=== PATIENT | male | born 1940 | race Caucasian/White ===

== ENCOUNTER 2016-06-11 08:59 | Emergency (ER) | payer MEDICARE, BC ==
[2016-06-11] MEDS ORDERED: Sodium Chloride 0.9% 1,000 ML IV SCH (10:00)
--- NOTE | 2016-06-11 10:14 | EDM.PDOC ---
[id number] [facility] [place] Time Seen by Provider: 06/11/16 10:09 Source: Reports: Patient, Family History Limitations: Reports: No limitations - History of Present Illness INITIAL COMMENTS - FREE TEXT/NARRATIVE: pt was at [facility] this am and he had not been getting up and down, he was sitting there and he suddenly looked like he was not aware and e was loosing his false teeth., Timing/Duration: Reports: sudden onset, resolved prior to arrival Event Occurred (Where): other ([facility]) Event (Witnessed/Unwitnessed): witnessed Quality: Reports: other (pt had a brief perod that he was not responding normally. ) Pre Event Symptom(s): Reports: confusion, syncope, other (Pt does have a history of demention) - Related Data Allergies/ADRs: Allergies Allergy/AdvReac Type Severity Reaction Status Date / Time No Known Allergies Allergy Verified 06/11/16 09:06 Home Meds: Home Meds Aspirin 325 mg PO DAILY 06/02/13 [History] Levothyroxine 75 mcg PO DAILY 06/02/13 [History] Lisinopril [Prinivil] 10 mg PO DAILY 06/02/13 [History] Metoprolol Succinate [Toprol XL] 25 mg PO DAILY 06/02/13 [History] Pantoprazole [Protonix] 40 mg PO DAILY 06/02/13 [History] Simvastatin [Simvastatin] 1 tab PO BEDTIME 06/02/13 [History] Donepezil HCl [Aricept] 10 mg PO DAILY 03/26/16 [History] Past Medical History HEENT History: Reports: Hard of hearing, Impaired vision Cardiovascular History: Reports: Angina, Bypass, High cholesterol, Hypertension , [place], Syncope Gastrointestinal History: Reports: Chronic constipation Musculoskeletal History: Reports: Arthritis Neurological History: Reports: Alzheimers disease Psychiatric History: Reports: Dementia, Depression Endocrine/Metabolic History: Reports: Hypothyroidism Other Endocrine/Metabolic History: thyroid disease Hematologic History: Reports: Blood transfusion(s) - Infectious Disease History Infectious Disease History: Reports: Chicken pox - Past Surgical History HEENT Surgical History: Reports: Oral surgery Cardiovascular Surgical History: Reports: Coronary artery bypass Other Cardiovascular Surgeries/Procedures: 2008 CABG GI Surgical History: Reports: Appendectomy, Colonoscopy Social & Family History - Tobacco Use Smoking Status *Q: Never Smoker Years of Tobacco use: 20 Used Tobacco, but Quit: Yes Month Tobacco Last Used: mar Second Hand Smoke Exposure: No - Caffeine Use Caffeine Use: Reports: Coffee - Alcohol Use Days Per Week of Alcohol Use: 0 - Recreational Drug Use Recreational Drug Use: No ED ROS GENERAL - Review of Systems Review Of Systems: See Below Constitutional: Reports: no symptoms HEENT: Reports: No symptoms Respiratory: Reports: No Symptoms Cardiovascular: Reports: No symptoms Endocrine: Reports: no symptoms GI/Abdominal: Reports: No symptoms : Reports: no symptoms Skin: Reports: no symptoms Neurological: Reports: Confusion, Syncope Psychiatric: Reports: No symptoms - Physical Exam Exam: See Below Text/Narrative:: Pt arrived after having a syncopal or near syncopal episode in [facility]. Exam Limited By: No limitations General Appearance: alert, no apparent distress, anxious, other ( pupils are equal and reactive. ) Ears: normal TMs Nose: normal inspection Throat/Mouth: Normal inspection Head Exam: atraumatic Neck: normal inspection Respiratory/Chest: no respiratory distress Cardiovascular: regular rate, rhythm, other ( bp is on the low side. ) GI/Abdominal: soft, non tender (Male) Exam: Normal inspection Rectal (Males) Exam: Deferred Neuro Exam (Abbreviated): alert, oriented, normal cognition Back Exam: normal inspection Extremities: normal inspection Psychiatric: anxious Course - Vital Signs Last Recorded V/S: Last Vital Signs Temp 36.4 C 06/11/16 09:02 Pulse 64 06/11/16 10:05 Resp 10 L 06/11/16 10:05 BP 127/55 L 06/11/16 10:05 Pulse Ox 98 06/11/16 10:05 Orthostatic Blood Pressure [ 117/73 Standing] Orthostatic Blood Pressure [ 112/72 Sitting] Orthostatic Blood Pressure [ 99/70 Supine] - Orders/Labs/Meds Labs: Laboratory Tests 06/11/16 06/11/16 Range/Units 09:15 09:15 Sodium 144 (140-148) mmol/L Potassium 4.3 (3.6-5.2) mmol/L Chloride 106 (100-108) mmol/L Carbon Dioxide 29 (21-32) mmol/L Anion Gap 9.3 (5.0-14.0) mmol/L BUN 13 (7-18) mg/dL Creatinine 1.0 (0.8-1.3) mg/dL Est Cr Clr Drug Dosing 62.70 mL/min Estimated GFR (MDRD) > 60 (>60) Glucose 116 H (74-106) mg/dL Calcium 8.5 (8.5-10.1) mg/dL Total Bilirubin 0.5 D (0.2-1.0) mg/dL AST 25 (15-37) U/L ALT 31 (12-78) U/L Alkaline Phosphatase 67 (46-116) U/L Troponin I < 0.017 (0.000-0.056) ng/mL Total Protein 7.1 (6.4-8.2) g/dL Albumin 3.6 (3.4-5.0) g/dL Globulin 3.5 (2.3-3.5) g/dL Albumin/Globulin Ratio 1.0 L (1.2-2.2) Meds: Medications Discontinued Medications Generic Name Dose Route Start Last Admin Trade Name Freq PRN Reason Stop Dose Admin Sodium Chloride 1,000 mls @ 999 mls/hr 06/11/16 10:00 06/11/16 10:23 Normal Saline IV 999 mls/hr ASDIRECTED MYLES Administration Departure - Departure Time of Disposition: 11:35 Disposition: Home, Self-Care 01 Condition: fair Clinical Impression: Postural hypotension, Dehydration Instructions: Hypotension, [id number], Near-Syncope, [id number], Dehydration, Adult Referrals: Leopoldo Rodriguez MD [Primary Care Provider] - Forms: ED Department Discharge Care Plan Goals: encourage fluids, decrease lisinopril to 1/2 tab daily--5mg instead of 10mg. See regular Dr in 10 days and recheck bp.
[2016-06-11 10:19] VITALS: BP 127/55
== END 2016-06-11 11:37 | disposition home or self-care (01) ==
LOC: JP.ED 08:59
DX: I95.1 Orthostatic hypotension (principal); E86.0 Dehydration; E78.00 Pure hypercholesterolemia, unspecified; I10 Essential (primary) hypertension; I25.2 Old myocardial infarction; E03.9 Hypothyroidism, unspecified; Z95.1 Presence of aortocoronary bypass graft; Z90.49 Acquired absence of other specified parts of digestive tract; Z98.890 Other specified postprocedural states; Z87.891 Personal history of nicotine dependence; Z79.899 Other long term (current) drug therapy; Z79.82 Long term (current) use of aspirin
CPT/HCPCS: 36415; 80053; 84484; 85025; 93005; 93010; 96360; 99284; J7040

== ENCOUNTER 2017-04-15 02:08 | Emergency (ER) | payer MEDICARE, BC ==
[2017-04-15 02:22] VITALS: BP 107/79
--- NOTE | 2017-04-15 02:48 | EDM.PDOC ---
ED HPI GENERAL MEDICAL PROBLEM - General Chief Complaint: Exposure to Heat or Cold Stated Complaint: FROSTBITE Time Seen by Provider: 04/15/17 02:30 Source of Information: Reports: Patient, Family, RN History Limitations: Reports: No Limitations - History of Present Illness INITIAL COMMENTS - FREE TEXT/NARRATIVE: 76 yo male here via police after he was found wandering the streets in his pajaprs with a pair of socks on his feet. Police called the and she met him here. Richard has known dementia and wandered off once in the past, but that time did not get as far from home. Onset: Today Onset Date: 04/15/17 Duration: Minutes: Location: Reports: Generalized Severity: Mild Improves with: Reports: Heat Therapy Worsens with: Reports: Other (time exposed to the elements) Context: Reports: Other (dementia) Associated Symptoms: Reports: Cough (chronic, not worse than usual per his . ) Treatments UNIX CONSULTANT: Reports: Other (see below) (none) Bilateral Feet Pain Score (Numeric/FACES): 8 - Related Data Allergies Allergy/AdvReac Type Severity Reaction Status Date / Time No Known Allergies Allergy Verified 06/11/16 09:06 Home Meds: Home Meds Aspirin 325 mg PO DAILY 06/02/13 [History] Levothyroxine 75 mcg PO DAILY 06/02/13 [History] Lisinopril [Prinivil] 10 mg PO DAILY 06/02/13 [History] Metoprolol Succinate [Toprol XL] 25 mg PO DAILY 06/02/13 [History] Pantoprazole [Protonix] 40 mg PO DAILY 06/02/13 [History] Simvastatin [Simvastatin] 1 tab PO BEDTIME 06/02/13 [History] Donepezil HCl [Aricept] 10 mg PO BEDTIME 03/26/16 [History] Past Medical History HEENT History: Reports: Hard of Hearing, Impaired Vision Cardiovascular History: Reports: Angina, Bypass, High Cholesterol, Hypertension , [place], Syncope Gastrointestinal History: Reports: Chronic Constipation Musculoskeletal History: Reports: Arthritis Neurological History: Reports: Alzheimers Disease Psychiatric History: Reports: Dementia, Depression Endocrine/Metabolic History: Reports: Hypothyroidism Other Endocrine/Metabolic History: thyroid disease Hematologic History: Reports: Blood Transfusion(s) - Infectious Disease History Infectious Disease History: Reports: Chicken Pox - Past Surgical History HEENT Surgical History: Reports: Oral Surgery Cardiovascular Surgical History: Reports: Coronary Artery Bypass Social & Family History - Tobacco Use Smoking Status *Q: Former Smoker Years of Tobacco use: 20 Used Tobacco, but Quit: Yes Month Tobacco Last Used: 1998 Second Hand Smoke Exposure: No - Caffeine Use Caffeine Use: Reports: Coffee - Alcohol Use Days Per Week of Alcohol Use: 0 - Recreational Drug Use Recreational Drug Use: No ED ROS GENERAL - Review of Systems Review Of Systems: See Below Constitutional: Reports: Chills HEENT: Reports: No Symptoms Respiratory: Reports: Cough (chronic) Cardiovascular: Reports: No Symptoms Endocrine: Reports: No Symptoms GI/Abdominal: Reports: No Symptoms : Reports: No Symptoms Musculoskeletal: Reports: No Symptoms Skin: Reports: Other (cold skin) Neurological: Reports: Other (dementia) Psychiatric: Reports: No Symptoms ED EXAM, GENERAL - Physical Exam Exam: See Below Exam Limited By: No Limitations General Appearance: Alert, WD/WN, No Apparent Distress Eye Exam: Bilateral Eye: Normal Inspection Ears: Normal External Exam, Normal Canal, Hearing Grossly Normal Ear Exam: Bilateral Ear: Auricle Normal, Canal Normal Nose: Normal Inspection, Normal Mucosa, No Blood Throat/Mouth: Normal Inspection, Normal Lips, Normal Teeth, Normal Oropharynx, Normal Voice, No Airway Compromise Head: Atraumatic, Normocephalic Neck: Normal Inspection, Supple, Non-Tender Respiratory/Chest: No Respiratory Distress, Lungs Clear, Normal Breath Sounds, No Accessory Muscle Use Cardiovascular: Regular Rate, Rhythm, No Edema GI/Abdominal: Normal Bowel Sounds, Soft, Non-Tender, No Distention Back Exam: Normal Inspection Extremities: Normal Inspection, Normal Range of Motion, Non-Tender, No Pedal Edema Neurological: Alert, CN II-XII Intact, No Motor/Sensory Deficits, Other (not fully oriented due to dementia ) Psychiatric: Normal Affect, Normal Mood Skin Exam: Warm, Dry, Intact, Normal Color, No Rash, Other (No signs of frostbite) Lymphatic: No Adenopathy Course - Vital Signs Text/Narrative:: warmed with blankets in the ER. Last Recorded V/S: Last Vital Signs Temp 36.2 C 04/15/17 02:48 Pulse 65 04/15/17 02:10 Resp 18 04/15/17 02:10 BP 107/79 04/15/17 02:10 Pulse Ox 98 04/15/17 02:10 Departure - Departure Time of Disposition: 03:15 Disposition: Home, Self-Care 01 Condition: Good Clinical Impression: Hypothermia, initial encounter - Discharge Information Referrals: PCP,None [Primary Care Provider] - Forms: ED Department Discharge Additional Instructions: Recheck as needed.
== END 2017-04-15 03:25 | disposition home or self-care (01) ==
LOC: JP.ED 02:08
DX: T68.XXXA Hypothermia, initial encounter (principal); F03.90 Unspecified dementia, unspecified severity, without behavioral disturbance, psychotic disturbance, mood disturbance, and anxiety; E03.9 Hypothyroidism, unspecified; E78.00 Pure hypercholesterolemia, unspecified; Z91.83 Wandering in diseases classified elsewhere; Z79.899 Other long term (current) drug therapy; Z79.82 Long term (current) use of aspirin; Z87.891 Personal history of nicotine dependence; X31.XXXA Exposure to excessive natural cold, initial encounter
CPT/HCPCS: 99283

== ENCOUNTER 2017-04-15 16:02 | Emergency (ER) | payer MEDICARE, BC ==
[2017-04-15 16:38] VITALS: BP 140/78
[2017-04-15] MEDS ORDERED: Ketorolac 30 MG/ML SDV IM ONE (17:08)
--- NOTE | 2017-04-15 17:26 | EDM.PDOC ---
ED HPI GENERAL MEDICAL PROBLEM - General Chief Complaint: Skin Complaint Stated Complaint: SALAZAR BITE BOTH FEET Time Seen by Provider: 04/15/17 17:04 Source of Information: Reports: Patient, Family, Old Records, RN Notes Reviewed History Limitations: Reports: Physical Impairment - History of Present Illness INITIAL COMMENTS - FREE TEXT/NARRATIVE: 76-year-old gentleman presents emergency department today for evaluation of his feet. He has a known history of dementia was evaluated emergency department early this morning for potential hypothermia was found walking outside in the snow in his stocking feet at the time per review of chart no sign of frostbite. He does return now he's developed blisters on the bottom of his feet he did remove them himself he has lost the top layer of skin by self removal still has some blisters present on the soles of his feet bilaterally, he is also complaining of pain bilateral feet Pain Score (Numeric/FACES): 1 - Related Data Allergies Allergy/AdvReac Type Severity Reaction Status Date / Time No Known Allergies Allergy Verified 04/15/17 16:41 Home Meds: Home Meds Aspirin 325 mg PO DAILY 06/02/13 [History] Levothyroxine 75 mcg PO DAILY 06/02/13 [History] Lisinopril [Prinivil] 10 mg PO BEDTIME 06/02/13 [History] Metoprolol Succinate [Toprol XL] 25 mg PO DAILY 06/02/13 [History] Pantoprazole [Protonix] 40 mg PO DAILY 06/02/13 [History] Simvastatin [Simvastatin] 1 tab PO BEDTIME 06/02/13 [History] Donepezil HCl [Aricept] 10 mg PO BEDTIME 03/26/16 [History] Melatonin 1 mg PO BEDTIME 04/15/17 [History] Past Medical History HEENT History: Reports: Hard of Hearing, Impaired Vision Cardiovascular History: Reports: Angina, Bypass, CAD, High Cholesterol, Hypertension, [place], Syncope Gastrointestinal History: Reports: Chronic Constipation Musculoskeletal History: Reports: Arthritis Neurological History: Reports: Alzheimers Disease Psychiatric History: Reports: Dementia, Depression Endocrine/Metabolic History: Reports: Hypothyroidism Other Endocrine/Metabolic History: thyroid disease Hematologic History: Reports: Blood Transfusion(s) - Infectious Disease History Infectious Disease History: Reports: Chicken Pox - Past Surgical History HEENT Surgical History: Reports: Oral Surgery Cardiovascular Surgical History: Reports: Coronary Artery Bypass Social & Family History - Tobacco Use Smoking Status *Q: Never Smoker Years of Tobacco use: 20 Used Tobacco, but Quit: Yes Month Tobacco Last Used: 1998 Second Hand Smoke Exposure: No - Caffeine Use Caffeine Use: Reports: Coffee - Alcohol Use Days Per Week of Alcohol Use: 0 - Recreational Drug Use Recreational Drug Use: No ED ROS GENERAL - Review of Systems Review Of Systems: Unable To Obtain Skin: Reports: Wound ED EXAM, SKIN/RASH Exam: See Below Text/Narrative:: Examination a patient of feet he does have blistering over the soles of his feet bilaterally he has self removed the majority of these some smaller blisters do remain. I don't appreciate any blackened toes pedal pulse is +2 bilaterally generalized tenderness to the touch on the soles of feet Exam Limited By: Physical Impairment General Appearance: Alert, No Apparent Distress Course - Vital Signs Last Recorded V/S: Last Vital Signs Temp 97.7 F 04/15/17 16:45 Pulse 73 04/15/17 16:45 Resp 16 04/15/17 16:45 BP 140/78 04/15/17 16:45 Pulse Ox 98 04/15/17 16:45 - Orders/Labs/Meds Meds: Medications Discontinued Medications Generic Name Dose Route Start Last Admin Trade Name Freq PRN Reason Stop Dose Admin Ketorolac Tromethamine 30 mg 04/15/17 17:08 04/15/17 17:13 Toradol IM 04/15/17 17:09 30 mg ONETIME ONE Administration Departure - Departure Time of Disposition: 17:28 Disposition: Home, Self-Care 01 Condition: Fair Clinical Impression: Superficial frostbite of right foot, initial encounter Superficial frostbite of left foot Qualifiers: Encounter type: initial encounter Qualified Code(s): T33.822A - Superficial frostbite of left foot, initial encounter - Discharge Information Referrals: Leopoldo Rodriguez MD [Primary Care Provider] - Additional Instructions: Please call to the assented clinic in the morning for an appointment time with Dr. Rosario from wound care, use ibuprofen as needed for pain control, call return to the emergency department with worsening of symptoms - Assessment/Plan Plan: Assessment Acuity = acute Site and laterality = superficial frostbite soles of feet bilaterally Etiology = secondary to exposure to cold Manifestations = pain Location of injury = Home Lab values = none Plan Wounds were dressed with Aquasol AG with significant padding consult was set up with wound care tomorrow, Toradol provided for pain control continue use ibuprofen at home This note was dictated using [employer] voice recognition software please call with any questions on syntax or sole.
== END 2017-04-15 17:44 | disposition home or self-care (01) ==
LOC: JP.ED 16:02
DX: T33.822A Superficial frostbite of left foot, initial encounter (principal); T33.821A Superficial frostbite of right foot, initial encounter; E78.00 Pure hypercholesterolemia, unspecified; I10 Essential (primary) hypertension; E03.9 Hypothyroidism, unspecified; Z79.82 Long term (current) use of aspirin; Z79.899 Other long term (current) drug therapy; Z87.891 Personal history of nicotine dependence; X31.XXXA Exposure to excessive natural cold, initial encounter; T68.XXXA Hypothermia, initial encounter; F03.90 Unspecified dementia, unspecified severity, without behavioral disturbance, psychotic disturbance, mood disturbance, and anxiety; Z91.83 Wandering in diseases classified elsewhere
CPT/HCPCS: 96372; 99283; 99284; J1885

== ENCOUNTER 2017-05-03 12:03 | Emergency (ER) | payer MEDICARE, BC ==
[2017-05-03 12:25] VITALS: BP 118/69
[2017-05-03] MEDS ORDERED: Sodium Chloride 0.9% 10 ML Syringe FLUSH PRN (13:53)
[2017-05-03] MEDS ORDERED: cefTRIAXone 1 GM in Sodium Chloride 0.9% 50 ML IV ONE (13:54)
--- NOTE | 2017-05-03 14:16 | EDM.PDOC ---
ED HPI GENERAL MEDICAL PROBLEM - General Chief Complaint: Eye Problems Stated Complaint: R EYE SWELLING/RED Time Seen by Provider: 05/03/17 12:35 Source of Information: Reports: Patient, Family History Limitations: Reports: No Limitations - History of Present Illness INITIAL COMMENTS - FREE TEXT/NARRATIVE: [facility] thur. he was placed on cipro. He has not gotten better and does appear to have gotten worse. Onset: Gradual, Other ( started thursday or thu and antibiotics have not improved the situation. ) Duration: Day(s): Location: Reports: Face Associated Symptoms: Reports: No Other Symptoms Right Eye Pain Score (Numeric/FACES): 5 - Related Data Allergies Allergy/AdvReac Type Severity Reaction Status Date / Time No Known Allergies Allergy Verified 04/15/17 16:41 Home Meds: Home Meds Aspirin 325 mg PO DAILY 06/02/13 [History] Levothyroxine 88 mcg PO DAILY 06/02/13 [History] Lisinopril [Prinivil] 10 mg PO BEDTIME 06/02/13 [History] Metoprolol Succinate [Toprol XL] 12.5 mg PO DAILY 06/02/13 [History] Pantoprazole [Protonix] 40 mg PO DAILY 06/02/13 [History] Simvastatin [Simvastatin] 1 tab PO BEDTIME 06/02/13 [History] Donepezil HCl [Aricept] 10 mg PO BEDTIME 03/26/16 [History] Melatonin 3 mg PO BEDTIME 04/15/17 [History] Cephalexin 1 tab PO QID 05/03/17 [History] Past Medical History HEENT History: Reports: Hard of Hearing, Impaired Vision Cardiovascular History: Reports: Angina, Bypass, CAD, High Cholesterol, Hypertension, [place], Syncope Gastrointestinal History: Reports: Chronic Constipation Musculoskeletal History: Reports: Arthritis Neurological History: Reports: Alzheimers Disease Psychiatric History: Reports: Dementia, Depression Endocrine/Metabolic History: Reports: Hypothyroidism Other Endocrine/Metabolic History: thyroid disease Hematologic History: Reports: Blood Transfusion(s) - Infectious Disease History Infectious Disease History: Reports: Measles - Past Surgical History HEENT Surgical History: Reports: Oral Surgery Cardiovascular Surgical History: Reports: Coronary Artery Bypass Social & Family History - Tobacco Use Smoking Status *Q: Former Smoker Years of Tobacco use: 20 Packs/Tins Daily: 0.5 Used Tobacco, but Quit: Yes Month Tobacco Last Used: january Second Hand Smoke Exposure: Yes - Caffeine Use Caffeine Use: Reports: Coffee - Alcohol Use Days Per Week of Alcohol Use: 0 - Recreational Drug Use Recreational Drug Use: No ED ROS GENERAL - Review of Systems Review Of Systems: See Below Constitutional: Reports: Fever, Chills HEENT: Reports: Other ( swelling and induration around the rt tear duct area. There is redness in the rest of the lower lid area. ) Respiratory: Reports: No Symptoms Cardiovascular: Reports: No Symptoms Endocrine: Reports: No Symptoms GI/Abdominal: Reports: No Symptoms : Reports: No Symptoms Musculoskeletal: Reports: No Symptoms ED EXAM GENERAL W FULL EYE - Physical Exam Exam: See Below Text/Narrative:: pt arrived with redness and swelling of the rt eye. Exam Limited By: No Limitations General Appearance: Alert, Other (pt has a firm indurated area around the rt tear duct/ This is very tender. He has redness in the rt lower lid. There does not appear to be swelling around the eye ball itself. ) Head: Atraumatic Neck: Normal Inspection Respiratory/Chest: No Respiratory Distress Cardiovascular: Regular Rate, Rhythm GI/Abdominal: Soft, Non-Tender (Male) Exam: Deferred Rectal (Males) Exam: Deferred Rectal (Female) Exam: Deferred Course - Vital Signs Last Recorded V/S: Last Vital Signs Temp 35.6 C 05/03/17 12:42 Pulse 62 05/03/17 12:42 Resp 16 05/03/17 12:42 BP 118/69 05/03/17 12:42 Pulse Ox 98 05/03/17 12:42 - Orders/Labs/Meds Orders: Active Orders 24 hr Category Date Time Status Chest 2V [CR] Stat Exams 05/03/17 12:32 Stop Req Max Facial Sinus wo Cont [CT] Stat Exams 05/03/17 12:46 Taken Sodium Chloride 0.9% [Saline Flush] Med 05/03/17 13:53 Active 10 ml FLUSH ASDIRECTED PRN cefTRIAXone [Rocephin] 1 gm Med 05/03/17 13:54 Active Sodium Chloride 0.9% [Normal Saline] 50 ml IV ONETIME Saline Lock Insert [OM.PC] Routine Oth 05/03/17 13:53 Ordered Medication Orders Ceftriaxone Sodium 1 gm/ (Sodium Chloride) 50 mls @ 100 mls/hr IV ONETIME ONE Stop: 05/03/17 14:23 Sodium Chloride (Saline Flush) 10 ml FLUSH ASDIRECTED PRN PRN Reason: Keep Vein Open Labs: Laboratory Tests 05/03/17 05/03/17 05/03/17 Range/Units 12:41 12:41 12:41 WBC 7.2 (4.5-11.0) K/uL RBC 4.47 (4.30-5.90) M/uL Hgb 13.4 (12.0-15.0) g/dL Hct 40.3 (40.0-54.0) % MCV 90 (80-98) fL MCH 30 (27-31) pg MCHC 33 (32-36) % Plt Count 327 (150-400) K/uL Neut % (Auto) 71 H (36-66) % Lymph % (Auto) 14 L (24-44) % [place] % (Auto) 13 H (2-6) % Eos % (Auto) 1 L (2-4) % Baso % (Auto) 0 (0-1) % Sodium 142 (140-148) mmol/L Potassium 4.4 (3.6-5.2) mmol/L Chloride 105 (100-108) mmol/L Carbon Dioxide 30 (21-32) mmol/L Anion Gap 7.4 (5.0-14.0) mmol/L BUN 12 (7-18) mg/dL Creatinine 1.0 (0.8-1.3) mg/dL Est Cr Clr Drug Dosing 59.67 mL/min Estimated GFR (MDRD) > 60 (>60) Glucose 82 (74-106) mg/dL Calcium 8.8 (8.5-10.1) mg/dL Total Bilirubin 0.4 (0.2-1.0) mg/dL AST 20 (15-37) U/L ALT 21 (12-78) U/L Alkaline Phosphatase 78 (46-116) U/L C-Reactive Protein 0.52 H (0.0-0.3) mg/dL Total Protein 6.8 (6.4-8.2) g/dL Albumin 3.3 L (3.4-5.0) g/dL Globulin 3.5 (2.3-3.5) g/dL Albumin/Globulin Ratio 0.9 L (1.2-2.2) Urine Color Urine Appearance Urine pH (4.5-8.0) Ur Specific [place] (1.008-1.030) Urine Protein (NEGATIVE) mg/dL Urine Glucose (UA) (NEGATIVE) mg/dL Urine Ketones (NEGATIVE) mg/dL Urine Occult Blood (NEGATIVE) Urine Nitrite (NEGAITVE) Urine Bilirubin (NEGATIVE) Urine Urobilinogen (NORMAL) mg/dL Ur Leukocyte Esterase (NEGATIVE) Urine RBC (0-5) Urine WBC (0-5) Ur Epithelial Cells Amorphous Sediment Urine Bacteria Urine Mucus Urine Other 05/03/17 Range/Units 12:51 WBC (4.5-11.0) K/uL RBC (4.30-5.90) M/uL Hgb (12.0-15.0) g/dL Hct (40.0-54.0) % MCV (80-98) fL MCH (27-31) pg MCHC (32-36) % Plt Count (150-400) K/uL Neut % (Auto) (36-66) % Lymph % (Auto) (24-44) % [place] % (Auto) (2-6) % Eos % (Auto) (2-4) % Baso % (Auto) (0-1) % Sodium (140-148) mmol/L Potassium (3.6-5.2) mmol/L Chloride (100-108) mmol/L Carbon Dioxide (21-32) mmol/L Anion Gap (5.0-14.0) mmol/L BUN (7-18) mg/dL Creatinine (0.8-1.3) mg/dL Est Cr Clr Drug Dosing mL/min Estimated GFR (MDRD) (>60) Glucose (74-106) mg/dL Calcium (8.5-10.1) mg/dL Total Bilirubin (0.2-1.0) mg/dL AST (15-37) U/L ALT (12-78) U/L Alkaline Phosphatase (46-116) U/L C-Reactive Protein (0.0-0.3) mg/dL Total Protein (6.4-8.2) g/dL Albumin (3.4-5.0) g/dL Globulin (2.3-3.5) g/dL Albumin/Globulin Ratio (1.2-2.2) Urine Color Yellow Urine Appearance Clear Urine pH 7.0 (4.5-8.0) Ur Specific [place] 1.005 L (1.008-1.030) Urine Protein Negative (NEGATIVE) mg/dL Urine Glucose (UA) Normal (NEGATIVE) mg/dL Urine Ketones Negative (NEGATIVE) mg/dL Urine Occult Blood Negative (NEGATIVE) Urine Nitrite Negative (NEGAITVE) Urine Bilirubin Negative (NEGATIVE) Urine Urobilinogen Normal (NORMAL) mg/dL Ur Leukocyte Esterase Negative (NEGATIVE) Urine RBC 0-5 (0-5) Urine WBC Not seen (0-5) Ur Epithelial Cells Not seen Amorphous Sediment Rare Urine Bacteria Not seen Urine Mucus Not seen Urine Other See note Meds: Medications Generic Name Dose Route Start Last Admin Trade Name Freq PRN Reason Stop Dose Admin Ceftriaxone Sodium 1 gm/ 50 mls @ 100 mls/hr 05/03/17 13:54 Sodium Chloride IV 05/03/17 14:23 ONETIME ONE Sodium Chloride 10 ml 05/03/17 13:53 Saline Flush FLUSH ASDIRECTED PRN Keep Vein Open - Re-Assessments/Exams Free Text/Narrative Re-Assessment/Exam: 05/03/17 14:17 A cat scan of the facial area was obtained which shows an abcess around the rt tear duct. Around that area there is obvious cellulitis. His wbc is not high. Departure - Departure Time of Disposition: 14:19 Disposition: Home, Self-Care 01 Condition: Fair Clinical Impression: Abscess of left lower eyelid - Discharge Information Referrals: Leopoldo Rodriguez MD [Primary Care Provider] - Care Plan Goals: moist warm packs, stop cipro, augmentin 875 bid. norco 5/325 q6h prn for pain. Bob will call them regarding an appointment for tomorrow to have it drained- -They will go to the eye clinic at [place] - My Orders Last 24 Hours: My Active Orders 05/03/17 12:32 Chest 2V [CR] Stat 05/03/17 12:46 Max Facial Sinus wo Cont [CT] Stat 05/03/17 13:53 Sodium Chloride 0.9% [Saline Flush] 10 ml FLUSH ASDIRECTED PRN Saline Lock Insert [OM.PC] Routine 05/03/17 13:54 cefTRIAXone [Rocephin] 1 gm Sodium Chloride 0.9% [Normal Saline] 50 ml IV ONETIME - Assessment/Plan Last 24 Hours: My Active Orders 05/03/17 12:32 Chest 2V [CR] Stat 05/03/17 12:46 Max Facial Sinus wo Cont [CT] Stat 05/03/17 13:53 Sodium Chloride 0.9% [Saline Flush] 10 ml FLUSH ASDIRECTED PRN Saline Lock Insert [OM.PC] Routine 05/03/17 13:54 cefTRIAXone [Rocephin] 1 gm Sodium Chloride 0.9% [Normal Saline] 50 ml IV ONETIME
== END 2017-05-03 15:06 | disposition home or self-care (01) ==
LOC: JP.ED 12:03
DX: H00.032 Abscess of right lower eyelid (principal); E78.00 Pure hypercholesterolemia, unspecified; I10 Essential (primary) hypertension; E03.9 Hypothyroidism, unspecified; Z79.82 Long term (current) use of aspirin; Z79.899 Other long term (current) drug therapy; Z87.891 Personal history of nicotine dependence
CPT/HCPCS: 36415; 70486; 80053; 81001; 85025; 86140; 96365; 99284; J0696; J7050

== ENCOUNTER 2017-06-24 09:03 | Emergency (ER) | payer MEDICARE, BC ==
[2017-06-24] MEDS ORDERED: Sodium Chloride 0.9% 1,000 ML IV SCH (09:30)
[2017-06-24 10:25] VITALS: BP 106/61
--- NOTE | 2017-06-24 10:45 | EDM.PDOC ---
ED HPI GENERAL MEDICAL PROBLEM - General Chief Complaint: General Stated Complaint: DIZZY Time Seen by Provider: 06/24/17 09:10 Source of Information: Reports: Patient History Limitations: Reports: No Limitations - History of Present Illness INITIAL COMMENTS - FREE TEXT/NARRATIVE: Pt [facility] being [facility] and having an episode where he got very sweaty and he nearly passed out. He has done this many times in the past. The pt dooest not drink fluids well Onset: Today, Sudden Duration: Hour(s): Associated Symptoms: Reports: Diaphoresis, Syncope, Other (Pt nearly passed out. ) - Related Data Allergies Allergy/AdvReac Type Severity Reaction Status Date / Time No Known Allergies Allergy Verified 06/24/17 09:11 Home Meds: Home Meds Aspirin 325 mg PO DAILY 06/02/13 [History] Levothyroxine 88 mcg PO DAILY 06/02/13 [History] Lisinopril [Prinivil] 10 mg PO BEDTIME 06/02/13 [History] Metoprolol Succinate [Toprol XL] 12.5 mg PO DAILY 06/02/13 [History] Pantoprazole [Protonix] 40 mg PO DAILY 06/02/13 [History] Simvastatin 1 tab PO BEDTIME 06/02/13 [History] Donepezil HCl [Aricept] 10 mg PO BEDTIME 03/26/16 [History] Melatonin 3 mg PO BEDTIME 04/15/17 [History] Cephalexin 1 tab PO QID 05/03/17 [History] Past Medical History HEENT History: Reports: Hard of Hearing, Impaired Vision Cardiovascular History: Reports: Angina, Bypass, CAD, High Cholesterol, Hypertension, [place], Syncope Gastrointestinal History: Reports: Chronic Constipation Musculoskeletal History: Reports: Arthritis Neurological History: Reports: Alzheimers Disease Psychiatric History: Reports: Dementia, Depression Endocrine/Metabolic History: Reports: Hypothyroidism Other Endocrine/Metabolic History: thyroid disease Hematologic History: Reports: Blood Transfusion(s) - Infectious Disease History Infectious Disease History: Reports: Measles - Past Surgical History HEENT Surgical History: Reports: Oral Surgery Cardiovascular Surgical History: Reports: Coronary Artery Bypass Social & Family History - Tobacco Use Smoking Status *Q: Never Smoker Years of Tobacco use: 20 Packs/Tins Daily: 0.5 Used Tobacco, but Quit: Yes Month/Year Tobacco Last Used: january Second Hand Smoke Exposure: Yes - Caffeine Use Caffeine Use: Reports: Coffee - Alcohol Use Days Per Week of Alcohol Use: 0 - Recreational Drug Use Recreational Drug Use: No ED ROS GENERAL - Review of Systems Review Of Systems: See Below Constitutional: Reports: No Symptoms HEENT: Reports: No Symptoms Respiratory: Reports: No Symptoms Cardiovascular: Reports: Blood Pressure Problem, Syncope Endocrine: Reports: No Symptoms GI/Abdominal: Reports: No Symptoms : Reports: No Symptoms Musculoskeletal: Reports: No Symptoms Skin: Reports: No Symptoms ED EXAM, GENERAL - Physical Exam Exam: See Below Free Text/Narrative:: Pt arrived after having a near syncopal episode at the [facility]. He was very diaphoretic He did not have chest pain. Hehas done this several times before. He does not drink water. Exam Limited By: Other (pt does have demntia) General Appearance: Alert, No Apparent Distress, Other (pupils are equal and reactive. ) Ears: Normal TMs Nose: Normal Inspection Throat/Mouth: Normal Inspection Head: Atraumatic Neck: Normal Inspection Respiratory/Chest: No Respiratory Distress Cardiovascular: Regular Rate, Rhythm GI/Abdominal: Soft, Non-Tender (Male) Exam: Deferred Rectal (Males) Exam: Deferred Back Exam: Normal Inspection Extremities: Normal Inspection Neurological: Alert, Other (pt has dementia and is quite forgetfu.) Psychiatric: Normal Affect Course - Vital Signs Last Recorded V/S: Last Vital Signs Temp 36.4 C 06/24/17 09:08 Pulse 55 L 06/24/17 10:24 Resp 13 06/24/17 10:24 BP 106/61 06/24/17 10:24 Pulse Ox 99 06/24/17 10:24 - Orders/Labs/Meds Orders: Active Orders 24 hr Category Date Time Status UA W/MICROSCOPIC [URIN] Urgent Lab 06/24/17 09:27 Ordered Sodium Chloride 0.9% [Normal Saline] 1,000 ml Med 06/24/17 09:30 Active IV ASDIRECTED Medication Orders Sodium Chloride (Normal Saline) 1,000 mls @ 999 mls/hr IV ASDIRECTED MYLES Last Admin: 06/24/17 09:29 Dose: 999 mls/hr Labs: Laboratory Tests 06/24/17 06/24/17 Range/Units 09:37 09:37 WBC 8.0 (4.5-11.0) K/uL RBC 4.25 L (4.30-5.90) M/uL Hgb 12.8 (12.0-15.0) g/dL Hct 37.6 L (40.0-54.0) % MCV 89 (80-98) fL MCH 30 (27-31) pg MCHC 34 (32-36) % Plt Count 173 (150-400) K/uL Neut % (Auto) 80 H (36-66) % Lymph % (Auto) 5 L (24-44) % [place] % (Auto) 15 H (2-6) % Eos % (Auto) 1 L (2-4) % Baso % (Auto) 0 (0-1) % Sodium 138 L (140-148) mmol/L Potassium 4.4 (3.6-5.2) mmol/L Chloride 104 (100-108) mmol/L Carbon Dioxide 26 (21-32) mmol/L Anion Gap 12.4 (5.0-14.0) mmol/L BUN 14 (7-18) mg/dL Creatinine 1.2 (0.8-1.3) mg/dL Est Cr Clr Drug Dosing 49.73 mL/min Estimated GFR (MDRD) 59 L (>60) Glucose 135 H (74-106) mg/dL Calcium 8.0 L (8.5-10.1) mg/dL Total Bilirubin 0.7 D (0.2-1.0) mg/dL AST 23 (15-37) U/L ALT 22 (12-78) U/L Alkaline Phosphatase 66 (46-116) U/L Total Protein 6.0 L (6.4-8.2) g/dL Albumin 3.1 L (3.4-5.0) g/dL Globulin 2.9 (2.3-3.5) g/dL Albumin/Globulin Ratio 1.1 L (1.2-2.2) Meds: Medications Generic Name Dose Route Start Last Admin Trade Name Freq PRN Reason Stop Dose Admin Sodium Chloride 1,000 mls @ 999 mls/hr 06/24/17 09:30 06/24/17 09:29 Normal Saline IV 999 mls/hr ASDIRECTED MYLES Administration - Re-Assessments/Exams Free Text/Narrative Re-Assessment/Exam: 06/24/17 10:46 pt was given a liter of fluid. He had labs that looked good. Hhis bp is 105 at this time. Departure - Departure Time of Disposition: 10:47 Disposition: Home, Self-Care 01 Condition: Fair Clinical Impression: Hypotension, Dehydration - Discharge Information Referrals: Leopoldo Rodriguez MD [Primary Care Provider] - Care Plan Goals: push fluids, stop lisinopril, appt with usual Dr in 3-4 days to recheck bp after lisinopril was stopped. - My Orders Last 24 Hours: My Active Orders 06/24/17 09:27 UA W/MICROSCOPIC [URIN] Urgent 06/24/17 09:30 Sodium Chloride 0.9% [Normal Saline] 1,000 ml IV ASDIRECTED - Assessment/Plan Last 24 Hours: My Active Orders 06/24/17 09:27 UA W/MICROSCOPIC [URIN] Urgent 06/24/17 09:30 Sodium Chloride 0.9% [Normal Saline] 1,000 ml IV ASDIRECTED
== END 2017-06-24 11:16 | disposition home or self-care (01) ==
LOC: JP.ED 09:03
DX: I95.9 Hypotension, unspecified (principal); E86.0 Dehydration; I10 Essential (primary) hypertension; I25.2 Old myocardial infarction; I25.10 Atherosclerotic heart disease of native coronary artery without angina pectoris; E03.9 Hypothyroidism, unspecified; Z79.82 Long term (current) use of aspirin; Z79.899 Other long term (current) drug therapy
CPT/HCPCS: 36415; 80053; 84484; 85025; 96360; 99283; 99284; J7040

== ENCOUNTER 2018-05-21 22:38 | Emergency (ER) | payer MEDICARE, BC ==
--- NOTE | 2018-05-21 23:02 | EDM.PDOC ---
ED HPI GENERAL MEDICAL PROBLEM - General Chief Complaint: General Stated Complaint: MEDICAL Time Seen by Provider: 05/21/18 22:50 Source of Information: Reports: Family, Old Records, RN History Limitations: Reports: No Limitations - History of Present Illness INITIAL COMMENTS - FREE TEXT/NARRATIVE: 77 yo male here via EMS from his home due to being more confused than usual today. Has known dementia. Dr. Rodriguez is his primary. No fever. Eating OK. Has a mild, chronic cough. Onset: Gradual Duration: Chronic, Waxing/Waning Location: Reports: Head (dementia) Quality: Reports: Other (no reported pain) Severity: Moderate (dementia) Improves with: Reports: None Worsens with: Reports: Other (time) Context: Reports: Other (see HPI) Associated Symptoms: Reports: Cough (chronic), Other (some urinary incontinence) Treatments [employer]: Reports: Other (see below) (usual meds) - Related Data Allergies Allergy/AdvReac Type Severity Reaction Status Date / Time No Known Allergies Allergy Verified 06/24/17 09:11 Home Meds: Home Meds Aspirin 325 mg PO DAILY 06/02/13 [History] Levothyroxine 88 mcg PO DAILY 06/02/13 [History] Lisinopril [Prinivil] 10 mg PO BEDTIME 06/02/13 [History] Metoprolol Succinate [Toprol XL] 12.5 mg PO DAILY 06/02/13 [History] Pantoprazole [Protonix] 40 mg PO DAILY 06/02/13 [History] Simvastatin 1 tab PO BEDTIME 06/02/13 [History] Donepezil HCl [Aricept] 10 mg PO BEDTIME 03/26/16 [History] Melatonin 3 mg PO BEDTIME 04/15/17 [History] cephALEXin [Cephalexin] 1 tab PO QID 05/03/17 [History] Past Medical History HEENT History: Reports: Hard of Hearing, Impaired Vision Cardiovascular History: Reports: Angina, Bypass, CAD, High Cholesterol, Hypertension, [place], Syncope Gastrointestinal History: Reports: Chronic Constipation Musculoskeletal History: Reports: Arthritis Neurological History: Reports: Alzheimers Disease Psychiatric History: Reports: Alzheimers Disease, Dementia, Depression Endocrine/Metabolic History: Reports: Hypothyroidism Other Endocrine/Metabolic History: thyroid disease Hematologic History: Reports: Blood Transfusion(s) - Infectious Disease History Infectious Disease History: Reports: Chicken Pox, Measles, Mumps - Past Surgical History HEENT Surgical History: Reports: Oral Surgery Cardiovascular Surgical History: Reports: Coronary Artery Bypass Social & Family History - Tobacco Use Smoking Status *Q: Unknown Ever Smoked - Caffeine Use Caffeine Use: Reports: Coffee ED ROS GENERAL - Review of Systems Review Of Systems: See Below Constitutional: Reports: No Symptoms. Denies: Fever, Chills, Decreased Appetite HEENT: Reports: No Symptoms Respiratory: Reports: Cough (mild, chronic). Denies: Shortness of Breath, Sputum Cardiovascular: Reports: No Symptoms GI/Abdominal: Reports: No Symptoms : Reports: Incontinence (at times) Musculoskeletal: Reports: No Symptoms Skin: Reports: No Symptoms Neurological: Reports: Confusion (chronic) Psychiatric: Reports: Agitation (at times, not now), Confusion (chronic) ED EXAM, GENERAL - Physical Exam Exam: See Below Exam Limited By: No Limitations General Appearance: Alert, WD/WN, No Apparent Distress Eye Exam: Bilateral Eye: Normal Inspection (pupils bilaterally constricted), PERRL Ears: Normal External Exam, Normal Canal, Hearing Grossly Normal Ear Exam: Bilateral Ear: Auricle Normal, Canal Normal Nose: Normal Inspection, Normal Mucosa, No Blood Throat/Mouth: Normal Inspection, Normal Lips, Normal Oropharynx, Normal Voice, No Airway Compromise Head: Atraumatic, Normocephalic Neck: Normal Inspection Respiratory/Chest: No Respiratory Distress, Lungs Clear, Normal Breath Sounds, No Accessory Muscle Use Cardiovascular: Regular Rate, Rhythm, No Edema GI/Abdominal: Normal Bowel Sounds, Soft, Non-Tender, No Distention Back Exam: Normal Inspection Extremities: Normal Inspection, Normal Range of Motion, Non-Tender, No Pedal Edema Neurological: Alert, CN II-XII Intact, No Motor/Sensory Deficits, Confused ( cooperative), Memory Loss Recent Events Psychiatric: Normal Affect, Normal Mood Skin Exam: Warm, Dry, Intact, Normal Color, No Rash Lymphatic: No Adenopathy Course - Vital Signs Text/Narrative:: ambulated briskly in the ER - Orders/Labs/Meds Orders: Active Orders 24 hr Category Date Time Status Bladder Scan [RC] ASDIRECTED Care 05/21/18 23:00 Active UA W/MICROSCOPIC [URIN] Stat Lab 05/21/18 22:52 Stop Req Departure - Departure Time of Disposition: 00:07 Disposition: Home, Self-Care 01 Condition: Good Clinical Impression: Dementia Qualifiers: Dementia type: unspecified type Dementia behavioral disturbance: without behavioral disturbance Qualified Code(s): F03.90 - Unspecified dementia without behavioral disturbance - Discharge Information *PRESCRIPTION DRUG MONITORING PROGRAM REVIEWED*: No *COPY OF PRESCRIPTION DRUG MONITORING REPORT IN PATIENT TADEO: No Instructions: Dementia, [id number] Referrals: Leopoldo Rodriguez MD [Primary Care Provider] - Forms: ED Department Discharge Additional Instructions: Try to follow up with your provider next week, continue your current meds until then. - My Orders Last 24 Hours: My Active Orders 05/21/18 22:52 UA W/MICROSCOPIC [URIN] Stat 05/21/18 23:00 Bladder Scan [RC] ASDIRECTED - Assessment/Plan Last 24 Hours: My Active Orders 05/21/18 22:52 UA W/MICROSCOPIC [URIN] Stat 05/21/18 23:00 Bladder Scan [RC] ASDIRECTED
[2018-05-22 00:23] VITALS: BP 122/75
== END 2018-05-22 00:24 | disposition home or self-care (01) ==
LOC: JP.ED 22:38
DX: G30.9 Alzheimer's disease, unspecified (principal); F02.80 Dementia in other diseases classified elsewhere, unspecified severity, without behavioral disturbance, psychotic disturbance, mood disturbance, and anxiety; I10 Essential (primary) hypertension; E78.00 Pure hypercholesterolemia, unspecified; E03.9 Hypothyroidism, unspecified; Z79.82 Long term (current) use of aspirin; Z79.899 Other long term (current) drug therapy
CPT/HCPCS: 51798; 99283

== ENCOUNTER 2018-08-24 07:44 | Emergency (ER) | payer MEDICARE, BC ==
--- NOTE | 2018-08-24 08:30 | EDM.PDOCBH ---
ED HPI GENERAL MEDICAL PROBLEM - General Chief Complaint: Behavioral/Psych Stated Complaint: acting out Time Seen by Provider: 08/24/18 08:27 Source of Information: Reports: Patient History Limitations: Reports: No Limitations - History of Present Illness INITIAL COMMENTS - FREE TEXT/NARRATIVE: Pt is a resident at [facility]. He has been acting out throwing things at the nurses. He was sent here because they are not able to manage the pt. He was accepted at [facility] in [place] and was to go yesterday but the was not quite ready for that and did not let him go. Onset: Gradual, Other (pt has had some major behavior issues. ) Duration: Hour(s): Location: Reports: Other (increased behavior and acting out problems at the [facility]. ) Associated Symptoms: Reports: Confusion - Related Data Allergies Allergy/AdvReac Type Severity Reaction Status Date / Time No Known Allergies Allergy Verified 08/24/18 08:22 Home Meds: Home Meds Aspirin 325 mg PO DAILY 06/02/13 [History] Levothyroxine 88 mcg PO DAILY 06/02/13 [History] Pantoprazole [Protonix] 40 mg PO DAILY 06/02/13 [History] Donepezil HCl [Aricept] 10 mg PO BEDTIME 03/26/16 [History] Melatonin 3 mg PO BEDTIME 04/15/17 [History] Acetaminophen 1 supp RECTAL ASDIRECTED 08/24/18 [History] Bisacodyl [Laxative] 10 mg PO ASDIRECTED 08/24/18 [History] Ergocalciferol (Vitamin D2) [Vitamin D2] 1 tab PO BID 08/24/18 [History] Gabapentin [Neurontin] 200 mg PO TID 08/24/18 [History] LORazepam 0.5 mg PO Q4H PRN 08/24/18 [History] Magnesium Hydroxide [Milk of Magnesia] 30 ml PO ASDIRECTED PRN 08/24/18 [History ] Memantine HCl 10 mg PO BID 08/24/18 [History] Prazosin HCl [Prazosin] 1 mg PO TID 08/24/18 [History] atorvaSTATin [Lipitor] 20 mg PO BEDTIME 08/24/18 [History] busPIRone HCl [Buspirone HCl] 20 mg PO BID 08/24/18 [History] Past Medical History HEENT History: Reports: Hard of Hearing, Impaired Vision Cardiovascular History: Reports: Angina, Bypass, CAD, High Cholesterol, Hypertension, [place], Syncope Gastrointestinal History: Reports: Chronic Constipation Musculoskeletal History: Reports: Arthritis Neurological History: Reports: Alzheimers Disease Psychiatric History: Reports: Alzheimers Disease, Dementia, Depression Endocrine/Metabolic History: Reports: Hypothyroidism Other Endocrine/Metabolic History: thyroid disease Hematologic History: Reports: Blood Transfusion(s) - Infectious Disease History Infectious Disease History: Reports: Chicken Pox, Measles, Mumps - Past Surgical History HEENT Surgical History: Reports: Oral Surgery Cardiovascular Surgical History: Reports: Coronary Artery Bypass Social & Family History - Caffeine Use Caffeine Use: Reports: Coffee ED ROS GENERAL - Review of Systems Review Of Systems: See Below Constitutional: Reports: No Symptoms HEENT: Reports: No Symptoms Respiratory: Reports: No Symptoms Cardiovascular: Reports: No Symptoms Endocrine: Reports: No Symptoms GI/Abdominal: Reports: No Symptoms : Reports: No Symptoms Musculoskeletal: Reports: No Symptoms Skin: Reports: No Symptoms Neurological: Reports: Confusion, Other (t has had some major behavioral issues. ) Psychiatric: Reports: Agitation, Confusion, Other ( acting out. ) ED EXAM, BEHAVIORAL HEALTH - Physical Exam Exam: See Below Text/Narrative:: pt arrived from the [facility] agitated and had been quite difficult through out the morning. He had been accepted at [facility] in [place]. Exam Limited By: No Limitations General Appearance: Alert, Moderate Distress, Other (pupils equal and reactive. ) Ears: Normal TMs Nose: Normal Inspection Throat/Mouth: Normal Inspection Head: Atraumatic Neck: Normal Inspection Respiratory/Chest: No Respiratory Distress Cardiovascular: Regular Rate, Rhythm GI/Abdominal: Non-Tender (Male) Exam: Deferred Rectal (Males) Exam: Deferred Back Exam: Normal Inspection Extremities: Normal Inspection Neurological: Alert, Disoriented to Person, Disoriented to Place, Disoriented to Time Psychiatric: Alert, Agitated, Disoriented COURSE, BEHAVIORAL HEALTH COMP - Course Vital Signs: Last Vital Signs Temp 36.0 C 08/24/18 08:55 Pulse 68 08/24/18 16:01 Resp 19 08/24/18 08:55 BP 128/70 08/24/18 16:01 Pulse Ox 97 08/24/18 16:01 Orders, Labs, Meds: Laboratory Tests 06/25/19 06/25/19 06/25/19 Range/Units 08:17 08:17 08:17 WBC 5.0 (4.5-11.0) K/uL RBC 4.63 (4.30-5.90) M/uL Hgb 13.7 (12.0-15.0) g/dL Hct 42.0 (40.0-54.0) % MCV 91 (80-98) fL MCH 30 (27-31) pg MCHC 33 (32-36) % Plt Count 218 (150-400) K/uL Neut % (Auto) 68 H (36-66) % Lymph % (Auto) 13 L (24-44) % [place] % (Auto) 16 H (2-6) % Eos % (Auto) 2 (2-4) % Baso % (Auto) 1 (0-1) % Sodium 141 (140-148) mmol/L Potassium 3.8 (3.6-5.2) mmol/L Chloride 105 (100-108) mmol/L Carbon Dioxide 26 (21-32) mmol/L Anion Gap 9.8 (5.0-14.0) mmol/L BUN 13 (7-18) mg/dL Creatinine 0.9 (0.8-1.3) mg/dL Est Cr Clr Drug Dosing TNP Estimated GFR (MDRD) > 60 (>60) Glucose 106 (74-106) mg/dL Calcium 9.0 (8.5-10.1) mg/dL Total Bilirubin 0.8 D (0.2-1.0) mg/dL AST 27 (15-37) U/L ALT 34 (12-78) U/L Alkaline Phosphatase 92 (46-116) U/L Total Protein 6.9 (6.4-8.2) g/dL Albumin 3.3 L (3.4-5.0) g/dL Globulin 3.6 H (2.3-3.5) g/dL Albumin/Globulin Ratio 0.9 L (1.2-2.2) TSH, Ultra Sensitive 5.310 H (0.358-3.740) uIU/mL Medications Discontinued Medications Generic Name Dose Route Start Last Admin Trade Name Freq PRN Reason Stop Dose Admin Buspirone HCl 20 mg 08/24/18 14:53 08/24/18 14:58 Buspar PO 06/25/19 14:54 20 mg ONETIME ONE Administration Haloperidol Lactate 2 mg 08/24/18 14:57 08/24/18 15:03 Haldol IM 08/24/18 14:58 2 mg ONETIME ONE Administration Lorazepam 1 mg 08/24/18 16:15 08/24/18 18:47 Ativan PO 08/24/18 16:16 1 mg ONETIME ONE Administration Memantine 10 mg 08/24/18 14:56 08/24/18 14:58 Namenda PO 08/24/18 14:57 10 mg BID ONE Administration Medical Clearance: 08/24/18 16:04 after calling all day to [facility] they did refuse him at this point saying that he was not a apropiate admission. He was given 3 mg of haldol im and he still is somewhat agitated. He was given his buspar 20mg po. He was given the namenda po. 10 mg. He continued to be agitated so he was given haldol 3 mg. Im. Just before leaving he will be given ativan 1 mg for the trip.Pt was accepted when a second phone call came in and it was felt that they could accomodate him. 08/26/18 23:16 Departure - Departure Time of Disposition: 16:07 Disposition: Home, Self-Care 01 Condition: Fair Clinical Impression: Agitation requiring sedation protocol Dementia Qualifiers: Dementia type: unspecified type Dementia behavioral disturbance: without behavioral disturbance Qualified Code(s): F03.90 - Unspecified dementia without behavioral disturbance - Discharge Information Referrals: PCP,None [Primary Care Provider] - Forms: ED Department Discharge Care Plan Goals: transfer to [facility] for further evaluation and evaluation of medication.
[2018-08-24] MEDS ORDERED: busPIRone 10 MG Tab PO ONE (14:53)
[2018-08-24] MEDS ORDERED: Memantine 10 MG Tab PO ONE (14:56)
[2018-08-24] MEDS ORDERED: Haloperidol Lactate 5 MG/ML SDV IM ONE (14:57)
[2018-08-24 16:02] VITALS: BP 128/70
[2018-08-24] MEDS ORDERED: LORazepam 1 MG Tab PO ONE (16:15)
== END 2018-08-24 19:18 | disposition home or self-care (01) ==
LOC: JP.ED 07:44
DX: R45.1 Restlessness and agitation (principal); F03.90 Unspecified dementia, unspecified severity, without behavioral disturbance, psychotic disturbance, mood disturbance, and anxiety; I10 Essential (primary) hypertension; E78.00 Pure hypercholesterolemia, unspecified; I25.10 Atherosclerotic heart disease of native coronary artery without angina pectoris; F32.9 Major depressive disorder, single episode, unspecified; E03.9 Hypothyroidism, unspecified; Z79.899 Other long term (current) drug therapy; Z79.82 Long term (current) use of aspirin
CPT/HCPCS: 36415; 80053; 84443; 85025; 96372; 99284; A9270; J1630